=== PATIENT | female | born 2000 | race American Indian/Alaskan Native ===

== ENCOUNTER 2019-03-14 13:25 | Emergency (ER) | payer SELFPAY ==
[2019-03-14 13:34] VITALS: BP 151/97
[2019-03-14 13:56] LABS: Bilirubin,Urine NEG (Negative); Blood,Urine NEG (Negative); Color,Urine Yellow (Yellow); Mucus,Urine 1+ /HPF; Protein,Urine <15 mg/dL mg/dL (Negative); RBC,Urine < 1.0 /HPF (0.0-6.0); WBC,Urine < 1.0 /HPF (0.0-6.0)
--- NOTE | 2019-03-14 13:57 | Emergency Department Report ---
ED HPI - General Chief complaint: Nausea/Vomiting/Diarrhea Stated complaint: /ABD PAIN/DIZZY Time Seen by Provider: 03/14/19 13:50 Source: patient Mode of arrival: Ambulatory Limitations: No Limitations - History of Present Illness Initial comments: 18-year-old female presents to ED with lower abdominal pain 3 days. Patient reports she had a positive home test last month. Patient believes she is approximately 3 months . States she has not had an appointment with an [facility] yet. Patient reports lower abdominal pressure, denies dysuria or vaginal bleeding. She does report some urinary frequency. She reports some nausea and vomiting; dizziness this morning. MD Complaint: abdominal pain -: days(s) (3) Location: pelvis Radiation: none Severity: moderate Quality: other (pressure) Consistency: constant Improves with: none Worsens with: none Associated symptoms: nausea/vomiting. denies: vaginal bleeding, vaginal discharge, dysuria Vaginal bleeding: none Pre- care: none - Related Data : 2 Para: 1 Previous Rx's Medication Instructions Recorded Last Taken Type Promethazine [Phenergan TAB] 25 mg PO Q6HR PRN #20 tab 03/14/19 Unknown Rx Allergies Allergy/AdvReac Type Severity Reaction Status Date / Time No Known Allergies Allergy Unverified 03/14/19 13:31 ED Review of Systems ROS: Stated complaint: /ABD PAIN/DIZZY Other details as noted in HPI Comment: All other systems reviewed and negative Constitutional: denies: chills, fever Gastrointestinal: abdominal pain, nausea, vomiting Genitourinary: frequency, other (denies vaginal bleeding). denies: dysuria ED Past Medical Hx - Past Medical History Previous Medical History?: Yes Additional medical history: pre-eclampsia, induced HTN - Surgical History Past Surgical History?: No - Social History Smoking Status: Current Some Day Smoker - Medications Home Medications: Home Medications Medication Instructions Recorded Confirmed Last Taken Type Promethazine [Phenergan TAB] 25 mg PO Q6HR PRN #20 tab 03/14/19 Unknown Rx ED Physical Exam - General Limitations: No Limitations General appearance: alert, in no apparent distress - Head Head exam: Present: atraumatic, normocephalic - Eye Eye exam: Present: normal appearance, PERRL, EOMI - ENT ENT exam: Present: mucous membranes moist - Neck Neck exam: Present: normal inspection - Respiratory Respiratory exam: Present: normal lung sounds bilaterally. Absent: respiratory distress - Cardiovascular Cardiovascular Exam: Present: regular rate, normal rhythm - GI/Abdominal GI/Abdominal exam: Present: soft, tenderness (mild suprapubic). Absent: distended - Extremities Exam Extremities exam: Present: normal inspection - Neurological Exam Neurological exam: Present: alert, oriented X3 - Psychiatric Psychiatric exam: Present: normal affect, normal mood - Skin Skin exam: Present: warm, dry, intact, normal color ED Course Vital Signs 03/14/19 13:33 Temperature 98.5 F Pulse Rate 88 Respiratory 18 Rate Blood Pressure 151/97 O2 Sat by Pulse 99 Oximetry ED Medical Decision Making - Lab Data Result diagrams: 03/14/19 14:08 03/14/19 14:08 - Radiology Data Radiology results: report reviewed, image reviewed - Medical Decision Making 18-year-old female presents to ED with her lower abdominal pain. Ultrasound shows a 15 week IUP with no other abnormalities. Urine is normal, no evidence of UTI. Labs are unremarkable. Patient is comfortable, nontoxic appearing, eating food in the room. Will discharge at this time. Patient is advised to fol low up with OB. Return precautions given. - Differential Diagnosis IUP, UTI, ectopic preg, miscarriage Critical care attestation.: If time is entered above; I have spent that time in minutes in the direct care of this critically ill patient, excluding procedure time. ED Disposition Clinical Impression: Abdominal pain during , 15 weeks gestation of Disposition: - TO HOME OR SELFCARE Is pt being admited?: No Condition: Stable Instructions: Abdominal Pain in (ED) Prescriptions: Promethazine [Phenergan TAB] 25 mg PO Q6HR PRN #20 tab PRN Reason: Nausea Referrals: [facility] [Provider Group] - 3-5 Days Time of Disposition: 15:10
[2019-03-14 14:03] LABS: HCG Qualitative,Urine Positive (Negative)
[2019-03-14 14:28] LABS: Basophils % (Auto) 0.3 % (0.0-1.8); Eosinophils # (Auto) 0.1 K/mm3 (0.0-0.4); Hematocrit 38.6 % (30.3-42.9); Hemoglobin 12.4 gm/dl (10.1-14.3); Lymphocytes # (Auto) 2.1 K/mm3 (1.2-5.4); Lymphocytes % (Auto) 18.1 % (13.4-35.0); Mean Corpuscular HGB Conc 32 % (30-34); Mean Corpuscular Volume 80 fl (79-97); Monocytes # (Auto) 0.8 K/mm3 (0.0-0.8); Monocytes % (Auto) 6.6 % (0.0-7.3); Platelet Count 320 K/mm3 (140-440); Red Blood Count 4.86 M/mm3 (3.65-5.03); Red Cell Distribution Width 14.5 % (13.2-15.2)
[2019-03-14 14:44] LABS: BUN/Creatinine Ratio 14; Blood Urea Nitrogen 7 mg/dL (7-17); Calcium 9.2 mg/dL (8.4-10.2); Hemolysis Index 1
--- NOTE | 2019-03-14 14:55 | Ultrasound Report ---
ULTRASOUND OBSTETRIC Indication: Pelvic pain, pressure Findings: There is a single intrauterine . BPD = 3.16 cm = 15 weeks, 6 day(s). Head circumference = 11.4 cm = 15 weeks, 4 day(s). Abdominal circumference = 9.8 cm = 15 weeks, 6 day(s). Femur length = 1.7 cm = 15 weeks, 0 day(s). Overall estimated sonographic age = 15 weeks, 4 day(s). heart rate is 149 beats per minute. position is breech. Cervix appears closed. Cervix measures 3.2 cm in length Placenta is posterior and grade 0 . Amniotic fluid volume appears normal. Impression: 1. Single living intrauterine with estimated sonographic age of 15 weeks, 4 day(s). 2. No sonographic abnormality identified. Signer Name: Naveed Jackson MD Signed: 03/14/2019 2:51 PM Workstation Name: [id number]
== END 2019-03-14 15:22 | disposition home or self-care (01) ==
LOC: ED 13:25
DX: O26.892 Other specified pregnancy related conditions, second trimester (principal); R10.2 Pelvic and perineal pain; O13.2 Gestational [pregnancy-induced] hypertension without significant proteinuria, second trimester; O11.2 Pre-existing hypertension with pre-eclampsia, second trimester; O99.332 Smoking (tobacco) complicating pregnancy, second trimester; Z79.899 Other long term (current) drug therapy; Z3A.15 15 weeks gestation of pregnancy
CPT/HCPCS: 36415; 76805; 80048; 81001; 81025; 84702; 85025